=== PATIENT | male | born 1960 | race Two or more races ===

== ENCOUNTER 2016-06-26 06:05 | Inpatient (IN) | payer BC ==
[~2016-06-26] VITALS: Ht 175.3 cm; Wt 108.3 kg
[2016-06-26] MEDS ORDERED: SODIUM CHLORIDE 0.9% 1,000 ML IV ONE (06:34)
[2016-06-26] MEDS ORDERED: HYDROmorphone HCL 2 MG/ML VL IV ONE ×3 (06:45→11:45)
[2016-06-26] MEDS ORDERED: ONDANSETRON HCL 4 MG/2 ML VIAL IV ONE (06:45)
[2016-06-26 07:46] LABS: Albumin 3.5 g/dL (3.4-5.0); BUN/Creatinine Ratio 28.1; Basophils # (auto) 0 uL; Basophils % (auto) 0.2 % (0.0-2.0); Bilirubin, Total 0.4 mg/dL (0.2-1.0); Calcium 8.3 mg/dL (8.5-10.1); Eosinophils # (auto) 0.1 uL; Eosinophils % (auto) 1.2 % (0.0-7.0); Hematocrit 40.1 % (41.0-53.0); Hemoglobin 13.6 g/dL (13.5-17.5); Lymphocytes # (auto) 0.8 uL; Lymphocytes % (auto) 13.1 % (10.0-50.0); Magnesium 2.1 mg/dL (1.6-2.6); Mean Corpuscular Hemoglobin 29.2 pg (28.0-32.0); Mean Platelet Volume 7.4 fL (7.4-10.4); Monocytes # (auto) 0.4 uL; Monocytes % (auto) 5.9 % (0.0-12.0); Neutrophils # (auto) 5.1 uL; Neutrophils % (auto) 79.6 % (37.0-80.0); Platelet Count (auto) 296 10^3/uL (140-450); Potassium 3.6 mmol/L (3.5-5.1); Red Cell Distribution Width 12.8 % (11.6-16.0); Total Protein 6.9 g/dL (6.4-8.2); White Blood Cell 6.4 10^3/uL (4.4-10.8)
[2016-06-26] MEDS ORDERED: LIDOCAINE HCL 2% TOP JELLY 5ML TOP ONE ×3 (11:00→13:31)
[2016-06-26] MEDS ORDERED: LIDOCAINE 2% JELLY UROJET 10 ML TOP ONE ×2 (11:21→11:36)
[2016-06-26] MEDS ORDERED: LIDOCAINE 2% JELLY 11ml (GLYDO) UR ONE ×3 (12:30→13:15)
[2016-06-26 12:57] LABS: INR 0.97 (0.9-1.15); Partial Thromboplastin Time 26.7 sec (22.64-33.71); Prothrombin Time 10.5 sec (9.37-12.3)
[2016-06-26] MEDS ORDERED: LIDOCAINE W/ EPINEPHRINE 2% INJ 20ML VIAL IJ ONE (13:15)
[2016-06-26] MEDS ORDERED: LIDOCAINE HCL 2 %PF INJ 10ML AMP IJ ONE (13:15)
[2016-06-26] MEDS ORDERED: LIDOCAINE 2%HCL (LOCAL ANESTH.) INJ 20ML MDV IJ ONE (13:15)
[2016-06-26] MEDS ORDERED: ACETAMINOPHEN 325 MG TAB PO PRN (13:30)
[2016-06-26] MEDS ORDERED: MORPHINE SULF INJ 2 MG/ML SYRINGE 1ML IV PRN (13:30)
[2016-06-26] MEDS ORDERED: ONDANSETRON HCL 4 MG/2 ML VIAL IV PRN (13:30)
[2016-06-26] MEDS ORDERED: cefTRIAXone 1GM/50ML D5W 50 ML IV ONE (13:30)
[2016-06-26] MEDS ORDERED: NITROGLYCERIN 0.4 MG SL TAB SL PRN (13:30)
[2016-06-26] MEDS ORDERED: cloNIDine HCL 0.1 MG TAB PO PRN (13:30)
[2016-06-26] MEDS ORDERED: DEXTROSE (50%) 50ML SYRG IV PRN (13:30)
[2016-06-26] MEDS ORDERED: CHOLECALCIFEROL (VITD3) 1,000 UNIT TAB PO ONE (14:00)
[2016-06-26] MEDS ORDERED: MULTIPLE VITAMIN TAB PO ONE (14:00)
[2016-06-26] MEDS ORDERED: ATENOLOL 50 MG TAB PO ONE (14:00)
[2016-06-26] MEDS ORDERED: HCTZ 25 MG TAB PO ONE (14:00)
[2016-06-26] MEDS: SODIUM CHLOR 0.9% PF (SALINE LOCK) 10ML VIAL IV SCH ×2 (14:00→22:00)
[2016-06-26] MEDS ORDERED: LISINOPRIL 20 MG TAB PO ONE (14:00)
[2016-06-26] MEDS ORDERED: MORPHINE SULF INJ 2 MG/ML SYRINGE 1ML ONE (14:35)
[2016-06-26] MEDS ORDERED: MORPHINE SULF INJ 2 MG/ML SYRINGE 1ML IV ONE (14:45)
[2016-06-26] MEDS ORDERED: LISI-646 PO (16:07)
[2016-06-26] MEDS ORDERED: ATE50T PO (16:07)
[2016-06-26] MEDS: InsuLIN REG 1unit/0.01ml Soln (100units/ml) SC SCH ×2 (17:00→22:00)
[2016-06-26] MEDS: ACCU-CHEK COMFORT CURVE STRIP VI SCH ×2 (17:12→22:00)
[2016-06-26] MEDS: MORPHINE SULF INJ 2 MG/ML SYRINGE 1ML IV PRN ×2 (17:14→23:02)
[2016-06-26 17:31] VITALS: BP 155/99
[2016-06-26] MEDS: HYDROcodone-ACET 5/325MG TAB PO PRN (18:02)
[2016-06-26 22:00] VITALS: BP 126/74
[2016-06-26] MEDS: TEMAZEPAM 15 MG CAP PO PRN (23:54)
[2016-06-27] MEDS: MORPHINE SULF INJ 2 MG/ML SYRINGE 1ML IV PRN ×2 (03:44→07:43)
[2016-06-27] MEDS: HYDROcodone-ACET 5/325MG TAB PO PRN (04:57)
[2016-06-27 05:00] VITALS: BP 128/77
[2016-06-27 05:50] LABS: Basophils # (auto) 0 uL; Basophils % (auto) 0.2 % (0.0-2.0); Eosinophils # (auto) 0.2 uL; Eosinophils % (auto) 1.8 % (0.0-7.0); Hematocrit 38.1 % (41.0-53.0); Hemoglobin 12.5 g/dL (13.5-17.5); Lymphocytes # (auto) 1.3 uL; Lymphocytes % (auto) 15.5 % (10.0-50.0); Mean Corpuscular Hemoglobin 28.8 pg (28.0-32.0); Mean Corpuscular Hgb Conc. 32.9 g/dL (32.0-36.0); Mean Corpuscular Volume 87.5 fL (80.0-100.0); Mean Platelet Volume 7.4 fL (7.4-10.4); Monocytes # (auto) 0.7 uL; Monocytes % (auto) 7.9 % (0.0-12.0); Neutrophils # (auto) 6.5 uL; Neutrophils % (auto) 74.6 % (37.0-80.0); Platelet Count (auto) 310 10^3/uL (140-450); White Blood Cell 8.7 10^3/uL (4.4-10.8)
[2016-06-27] MEDS: SODIUM CHLOR 0.9% PF (SALINE LOCK) 10ML VIAL IV SCH ×3 (06:00→22:12)
[2016-06-27 06:21] LABS: Albumin 3.3 g/dL (3.4-5.0); BUN/Creatinine Ratio 15.7; Bilirubin, Total 0.8 mg/dL (0.2-1.0); Calcium 8.3 mg/dL (8.5-10.1); Potassium 3.6 mmol/L (3.5-5.1); Total Protein 6.4 g/dL (6.4-8.2)
[2016-06-27] MEDS: InsuLIN REG 1unit/0.01ml Soln (100units/ml) SC SCH (06:34)
[2016-06-27] MEDS: ACCU-CHEK COMFORT CURVE STRIP VI SCH (06:35)
[2016-06-27 09:00] VITALS: BP 128/90
[2016-06-27] MEDS: cefTRIAXone 1GM/50ML D5W 50 ML IV SCH (09:01)
[2016-06-27] MEDS: ATENOLOL 50 MG TAB PO SCH (09:04)
[2016-06-27] MEDS: MULTIPLE VITAMIN TAB PO SCH (09:04)
[2016-06-27] MEDS: ALPRAZolam 0.25 MG TAB PO PRN ×2 (09:33→22:12)
[2016-06-27] MEDS ORDERED: HCTZ 25 MG TAB PO SCH (10:00)
[2016-06-27] MEDS ORDERED: CHOLECALCIFEROL (VITD3) 1,000 UNIT TAB PO SCH (10:00)
[2016-06-27] MEDS ORDERED: LISINOPRIL 20 MG TAB PO SCH (10:00)
[2016-06-27] MEDS: HYDROmorphone HCL 2 MG/ML VL IV PRN ×3 (12:26→20:43)
[2016-06-27] MEDS: SODIUM CHLORIDE 0.9% 1,000 ML IV SCH (12:27)
[2016-06-27 13:00] VITALS: BP 120/80
[2016-06-27] MEDS: DOCUSATE SOD 100 MG CAP PO PRN (13:26)
[2016-06-27 17:45] VITALS: BP 130/69
[2016-06-27] MEDS: TEMAZEPAM 15 MG CAP PO PRN (23:12)
[2016-06-27 23:26] VITALS: BP 117/76
[2016-06-28] MEDS: SODIUM CHLORIDE 0.9% 1,000 ML IV SCH ×2 (00:58→14:02)
[2016-06-28] MEDS: HYDROmorphone HCL 2 MG/ML VL IV PRN ×2 (02:02→06:17)
[2016-06-28 05:30] VITALS: BP 111/69
[2016-06-28 06:14] LABS: Basophils # (auto) 0 uL; Basophils % (auto) 0.4 % (0.0-2.0); Eosinophils # (auto) 0.2 uL; Eosinophils % (auto) 2.2 % (0.0-7.0); Hematocrit 36.9 % (41.0-53.0); Hemoglobin 12.2 g/dL (13.5-17.5); Lymphocytes % (auto) 21.7 % (10.0-50.0); Mean Corpuscular Hgb Conc. 33.2 g/dL (32.0-36.0); Mean Corpuscular Volume 87.5 fL (80.0-100.0); Mean Platelet Volume 7.4 fL (7.4-10.4); Monocytes # (auto) 0.8 uL; Monocytes % (auto) 8.5 % (0.0-12.0); Neutrophils # (auto) 6.1 uL; Neutrophils % (auto) 67.2 % (37.0-80.0); Platelet Count (auto) 304 10^3/uL (140-450); Red Cell Distribution Width 12.6 % (11.6-16.0)
[2016-06-28] MEDS: SODIUM CHLOR 0.9% PF (SALINE LOCK) 10ML VIAL IV SCH ×3 (06:17→20:23)
[2016-06-28 07:00] VITALS: BP 119/70
[2016-06-28 07:40] VITALS: BP 119/70
[2016-06-28 08:57] VITALS: BP 119/70
[2016-06-28] MEDS: cefTRIAXone 1GM/50ML D5W 50 ML IV SCH (09:00)
[2016-06-28] MEDS ORDERED: ceFAZolin 1GM/50ML D5W 50 ML IV ONE (09:03)
[2016-06-28] MEDS ORDERED: PROPOFOL 10 MG/ML 20 ML IV ONE (09:46)
[2016-06-28] MEDS ORDERED: MIDAZOLAM HCL 1MG/1ML-2 ML VIAL ONE (09:46)
[2016-06-28] MEDS ORDERED: fentaNYL CITRATE 100 MCG/2 ML VL ONE (09:46)
[2016-06-28] MEDS ORDERED: ONDANSETRON HCL 4 MG/2 ML VIAL ONE (09:46)
[2016-06-28] MEDS: MULTIPLE VITAMIN TAB PO SCH (10:00)
[2016-06-28] MEDS: ATENOLOL 50 MG TAB PO SCH (10:00)
[2016-06-28] MEDS: LISINOPRIL 10 MG TAB PO SCH (10:00)
[2016-06-28] MEDS ORDERED: SUCCINYLCHOLINE CHLORIDE 20 MG/ML 10ML VIAL IV ONE (10:25)
[2016-06-28] MEDS ORDERED: ROCURONIUM 10MG/ML 10ML VIAL IV ONE (10:25)
[2016-06-28] MEDS ORDERED: HYDROmorphone HCL 2 MG/ML VL IV PRN (10:45)
[2016-06-28] MEDS ORDERED: METOCLOPRAMIDE HCL 5MG/ml INJ 2ml VIAL IV ONE (10:45)
[2016-06-28] MEDS ORDERED: LIDOCAINE 2% JELLY 11ml (GLYDO) ONE ×2 (11:16→13:19)
[2016-06-28] MEDS ORDERED: LIDOCAINE HCL 2% TOP JELLY 5ML TOP ONE (13:17)
[2016-06-28] MEDS: HYDROcodone-ACET 5/325MG TAB PO PRN ×2 (14:51→20:24)
[2016-06-28 16:00] VITALS: BP 129/78
[2016-06-28] MEDS: DOCUSATE SOD 100 MG CAP PO PRN ×2 (16:46→20:24)
[2016-06-28] MEDS: TEMAZEPAM 15 MG CAP PO PRN (20:24)
[2016-06-28 21:30] VITALS: BP 113/71
[2016-06-28] MEDS: ALPRAZolam 0.25 MG TAB PO PRN (21:49)
[2016-06-29] MEDS: SODIUM CHLORIDE 0.9% 1,000 ML IV SCH ×2 (03:33→21:24)
[2016-06-29 05:00] VITALS: BP 125/68
[2016-06-29] MEDS: SODIUM CHLOR 0.9% PF (SALINE LOCK) 10ML VIAL IV SCH ×3 (05:19→21:25)
[2016-06-29] MEDS: HYDROcodone-ACET 5/325MG TAB PO PRN ×4 (05:19→22:46)
[2016-06-29 06:42] LABS: Basophils # (auto) 0 uL; Eosinophils # (auto) 0 uL; Hematocrit 39.3 % (41.0-53.0); Hemoglobin 13.1 g/dL (13.5-17.5); Mean Corpuscular Hemoglobin 29.2 pg (28.0-32.0); Mean Corpuscular Hgb Conc. 33.4 g/dL (32.0-36.0); Mean Corpuscular Volume 87.5 fL (80.0-100.0); Mean Platelet Volume 7.6 fL (7.4-10.4); Monocytes # (auto) 0.9 uL; Monocytes % (auto) 6.3 % (0.0-12.0); Neutrophils # (auto) 12.2 uL; Neutrophils % (auto) 86.7 % (37.0-80.0); Platelet Count (auto) 383 10^3/uL (140-450); Red Cell Distribution Width 12.5 % (11.6-16.0)
[2016-06-29 07:04] LABS: Albumin 3.3 g/dL (3.4-5.0); BUN/Creatinine Ratio 15.1; Bilirubin, Total 0.4 mg/dL (0.2-1.0); Calcium 8.8 mg/dL (8.5-10.1); Total Protein 7.6 g/dL (6.4-8.2)
[2016-06-29 08:00] VITALS: BP 119/70
[2016-06-29] MEDS ORDERED: LIDOCAINE 2% JELLY 11ml (GLYDO) UR ONE (08:00)
[2016-06-29] MEDS: ALPRAZolam 0.25 MG TAB PO PRN ×2 (08:11→14:17)
[2016-06-29] MEDS: cefTRIAXone 1GM/50ML D5W 50 ML IV SCH (08:55)
[2016-06-29] MEDS: DOCUSATE SOD 100 MG CAP PO PRN (08:59)
[2016-06-29 09:00] VITALS: BP 128/84
[2016-06-29] MEDS: MULTIPLE VITAMIN TAB PO SCH (09:53)
[2016-06-29] MEDS: ATENOLOL 50 MG TAB PO SCH (09:53)
[2016-06-29] MEDS: LISINOPRIL 10 MG TAB PO SCH (09:54)
[2016-06-29] MEDS ORDERED: LACTULOSE 20Gm/30ML SOLN PO ONE ×2 (10:15→10:30)
[2016-06-29 13:00] VITALS: BP 116/75
[2016-06-29 17:00] VITALS: BP 129/72
[2016-06-29] MEDS: TEMAZEPAM 15 MG CAP PO PRN (21:21)
[2016-06-29 22:03] VITALS: BP 143/79
[2016-06-30] MEDS: HYDROcodone-ACET 5/325MG TAB PO PRN ×2 (03:00→09:08)
[2016-06-30] MEDS: ALPRAZolam 0.25 MG TAB PO PRN (04:08)
[2016-06-30 05:02] VITALS: BP 147/88
[2016-06-30] MEDS: SODIUM CHLORIDE 0.9% 1,000 ML IV SCH (05:55)
[2016-06-30] MEDS: SODIUM CHLOR 0.9% PF (SALINE LOCK) 10ML VIAL IV SCH (06:00)
[2016-06-30 07:06] LABS: Calcium 7.8 mg/dL (8.5-10.1); Potassium 3.8 mmol/L (3.5-5.1)
[2016-06-30 07:09] LABS: BUN/Creatinine Ratio 14.4
[2016-06-30 07:11] LABS: Bilirubin, Total 0.2 mg/dL (0.2-1.0); Total Protein 6.3 g/dL (6.4-8.2)
[2016-06-30 07:12] LABS: Basophils # (auto) 0 uL; Basophils % (auto) 0.5 % (0.0-2.0); Eosinophils # (auto) 0.1 uL; Eosinophils % (auto) 1.5 % (0.0-7.0); Hematocrit 35.9 % (41.0-53.0); Hemoglobin 11.8 g/dL (13.5-17.5); Lymphocytes # (auto) 2.3 uL; Mean Corpuscular Hemoglobin 28.7 pg (28.0-32.0); Mean Corpuscular Hgb Conc. 32.7 g/dL (32.0-36.0); Mean Corpuscular Volume 87.7 fL (80.0-100.0); Mean Platelet Volume 7.8 fL (7.4-10.4); Monocytes # (auto) 0.8 uL; Monocytes % (auto) 7.5 % (0.0-12.0); Neutrophils # (auto) 6.8 uL; Neutrophils % (auto) 67.5 % (37.0-80.0); Platelet Count (auto) 321 10^3/uL (140-450); Red Cell Distribution Width 13.1 % (11.6-16.0)
[2016-06-30 08:00] VITALS: BP 125/65
[2016-06-30 09:00] VITALS: BP 149/83
[2016-06-30] MEDS: MULTIPLE VITAMIN TAB PO SCH (09:08)
[2016-06-30] MEDS: ATENOLOL 50 MG TAB PO SCH (09:08)
[2016-06-30] MEDS: LISINOPRIL 10 MG TAB PO SCH (09:09)
[2016-06-30] MEDS: cefTRIAXone 1GM/50ML D5W 50 ML IV SCH (09:09)
== END 2016-06-30 13:32 | disposition home or self-care (01) | DRG 714 ==
LOC: ER 06:06 → TELE 06:07 → TELE-EAST 16:18
PROVIDERS: ADMIT Internal Medicine; ATTEND Internal Medicine
PROC: 0V508ZZ Destruction of Prostate, Via Natural or Artificial Opening Endoscopic (ICD-10-PCS; 2016-06-28)
PROC: 0VT08ZZ Resection of Prostate, Via Natural or Artificial Opening Endoscopic (ICD-10-PCS; principal; 2016-06-28 10:26)
DX: N40.1 Benign prostatic hyperplasia with lower urinary tract symptoms (principal); D63.8 Anemia in other chronic diseases classified elsewhere; E83.51 Hypocalcemia; I10 Essential (primary) hypertension; R31.0 Gross hematuria; Z90.79 Acquired absence of other genital organ(s); K59.00 Constipation, unspecified; E66.9 Obesity, unspecified; Z68.35 Body mass index [BMI] 35.0-35.9, adult; S37.8 Injury of other urinary and pelvic organs
CPT/HCPCS: 36415; 51702; 71010; 74176; 76856; 80053; 82962; 83036; 83735; 85025; 85610; 85730; 86850; 86900; 86901; 87081; 93005; 96365; 96375; 96376; J0330; J0690; J0696; J2250; J2405; J2704

== ENCOUNTER 2016-08-11 21:45 | Emergency (ER) | payer BC ==
[~2016-08-11] VITALS: Ht 177.8 cm; Wt 108.9 kg
[~2016-08-11 21:45] MED LIST: ATE50T PO; LISI-646 PO
[2016-08-11] MEDS ORDERED: MORPHINE SULFATE 4 MG/ML SYRG IV ONE (23:45)
[2016-08-11] MEDS ORDERED: ONDANSETRON HCL 4 MG/2 ML VIAL IV ONE (23:45)
[2016-08-11 23:52] LABS: Urine Bilirubin Negative (Negative); Urine Color Yellow (Yellow); Urine Glucose Normal (Normal); Urine Ketone Negative (Negative); Urine Mucus FEW (None Seen); Urine Nitrite Negative (Negative); Urine RBC 17 /hpf (0 - 3); Urine Squamous Epithelial Cell FEW /hpf (<5); Urine Urobilinogen Normal (Negative); Urine pH 5.5 (5.0-8.0)
[2016-08-11 23:55] LABS: Basophils # (auto) 0.1 uL; Basophils % (auto) 1.6 % (0.0-2.0); Eosinophils # (auto) 0.1 uL; Eosinophils % (auto) 1.1 % (0.0-7.0); Hematocrit 46.2 % (41.0-53.0); Hemoglobin 15.4 g/dL (13.5-17.5); Lymphocytes # (auto) 2.2 uL; Lymphocytes % (auto) 30.8 % (10.0-50.0); Mean Corpuscular Hemoglobin 28.5 pg (28.0-32.0); Mean Corpuscular Hgb Conc. 33.4 g/dL (32.0-36.0); Mean Corpuscular Volume 85.3 fL (80.0-100.0); Mean Platelet Volume 7.5 fL (7.4-10.4); Monocytes # (auto) 0.7 uL; Monocytes % (auto) 10.3 % (0.0-12.0); Neutrophils # (auto) 3.9 uL; Neutrophils % (auto) 56.2 % (37.0-80.0); Platelet Count (auto) 287 10^3/uL (140-450); Red Cell Distribution Width 11.8 % (11.6-16.0)
[2016-08-11 23:56] LABS: Urine Blood 1+ /uL (Negative)
[2016-08-12 00:03] LABS: Albumin 3.7 g/dL (3.4-5.0); Calcium 8.8 mg/dL (8.5-10.1); Potassium 3.9 mmol/L (3.5-5.1)
[2016-08-12 00:06] LABS: BUN/Creatinine Ratio 16.7
[2016-08-12 00:14] LABS: Bilirubin, Total 0.5 mg/dL (0.2-1.0); Total Protein 7.9 g/dL (6.4-8.2)
[2016-08-12] MEDS ORDERED: cefTRIAXone 1GM/50ML D5W 50 ML IV ONE ×2 (03:56→04:00)
[2016-08-12] MEDS ORDERED: HYDROmorphone HCL 2 MG/ML VL IV ONE ×2 (04:00)
[2016-08-12] MEDS ORDERED: SODIUM CHLORIDE 0.9% 1,000 ML IV ONE (04:15)
[2016-08-12 05:00] VITALS: BP 147/72
[2016-08-13 11:07] LABS: PSA Free 0.43 ng/mL; Prostate Specific Antigen 2.6 ng/mL (0.0-4.0)
== END 2016-08-12 05:24 | disposition home or self-care (01) ==
LOC: ER 21:55
DX: N39.0 Urinary tract infection, site not specified (principal); R33.9 Retention of urine, unspecified; I10 Essential (primary) hypertension
CPT/HCPCS: 36415; 51702; 74176; 80053; 81001; 84154; 85025; 96365; 96375; 99285; J0696; J1170; J2270; J2405; J7030

== ENCOUNTER 2016-08-12 11:00 | Inpatient (IN) | payer BC ==
[~2016-08-12] VITALS: Ht 177.8 cm; Wt 107.6 kg
[2016-08-12] MEDS: SODIUM CHLORIDE 0.9% 1,000 ML IV SCH ×2 (12:00→22:19)
[2016-08-12] MEDS ORDERED: ACETAMINOPHEN 325 MG TAB PO PRN (12:00)
[2016-08-12 12:11] VITALS: BP 155/96
[2016-08-12] MEDS: ONDANSETRON HCL 4 MG/2 ML VIAL IV PRN ×2 (12:32→16:18)
[2016-08-12] MEDS: HYDROmorphone HCL 2 MG/ML VL IV PRN ×3 (12:32→21:20)
[2016-08-12 12:35] VITALS: BP 155/96
[2016-08-12 12:52] VITALS: BP 135/76
[2016-08-12 12:52] LABS: Basophils # (auto) 0 uL; Basophils % (auto) 0.3 % (0.0-2.0); Eosinophils # (auto) 0.1 uL; Eosinophils % (auto) 0.7 % (0.0-7.0); Hematocrit 42.8 % (41.0-53.0); Hemoglobin 14.6 g/dL (13.5-17.5); Lymphocytes % (auto) 25.6 % (10.0-50.0); Mean Corpuscular Hemoglobin 29.4 pg (28.0-32.0); Mean Corpuscular Hgb Conc. 34.2 g/dL (32.0-36.0); Mean Corpuscular Volume 86.1 fL (80.0-100.0); Mean Platelet Volume 7.7 fL (7.4-10.4); Monocytes # (auto) 0.7 uL; Neutrophils % (auto) 64.4 % (37.0-80.0); Platelet Count (auto) 293 10^3/uL (140-450); Red Cell Distribution Width 13.4 % (11.6-16.0); White Blood Cell 7.7 10^3/uL (4.4-10.8)
[2016-08-12 13:20] LABS: Albumin 3.5 g/dL (3.4-5.0); BUN/Creatinine Ratio 17.2; Bilirubin, Total 0.6 mg/dL (0.2-1.0); Calcium 8.3 mg/dL (8.5-10.1); Total Protein 6.9 g/dL (6.4-8.2)
[2016-08-12 17:00] VITALS: BP 129/79
[2016-08-12 20:15] VITALS: BP 140/58
[2016-08-12 21:39] VITALS: BP 140/58
[2016-08-13 05:00] VITALS: BP 139/79
[2016-08-13 08:50] VITALS: BP 155/87
[2016-08-13] MEDS: cefTRIAXone 1GM/50ML D5W 50 ML IV SCH (08:54)
[2016-08-13] MEDS: SODIUM CHLORIDE 0.9% 1,000 ML IV SCH (08:54)
[2016-08-13] MEDS ORDERED: TEMAZEPAM 15 MG CAP PO PRN (09:30)
[2016-08-13] MEDS: PHENAZOPYRIDINE HCL 100 MG TAB PO SCH ×2 (12:09→17:44)
[2016-08-13 13:00] VITALS: BP 150/91
[2016-08-13 17:02] VITALS: BP 146/95
[2016-08-13] MEDS ORDERED: TAMSULOSIN HYDROCHLORIDE 0.4 MG CAP PO SCH (18:00)
[2016-08-13 20:05] VITALS: BP 156/88
[2016-08-13 20:35] VITALS: BP 156/88
[2016-08-13] MEDS: HYDROmorphone HCL 2 MG/ML VL IV PRN (23:46)
[2016-08-13] MEDS: ONDANSETRON HCL 4 MG/2 ML VIAL IV PRN (23:46)
[2016-08-14] MEDS: SODIUM CHLORIDE 0.9% 1,000 ML IV SCH (00:18)
[2016-08-14 04:40] VITALS: BP 132/76
[2016-08-14 06:28] LABS: Basophils # (auto) 0 uL; Basophils % (auto) 0.4 % (0.0-2.0); Eosinophils # (auto) 0.1 uL; Eosinophils % (auto) 2.4 % (0.0-7.0); Hematocrit 42.8 % (41.0-53.0); Hemoglobin 14.4 g/dL (13.5-17.5); Lymphocytes # (auto) 2.2 uL; Mean Corpuscular Hemoglobin 29.3 pg (28.0-32.0); Mean Corpuscular Hgb Conc. 33.6 g/dL (32.0-36.0); Mean Corpuscular Volume 87.2 fL (80.0-100.0); Mean Platelet Volume 8.4 fL (7.4-10.4); Monocytes # (auto) 0.6 uL; Monocytes % (auto) 10.6 % (0.0-12.0); Neutrophils % (auto) 49.6 % (37.0-80.0); Platelet Count (auto) 265 10^3/uL (140-450); Red Cell Distribution Width 12.6 % (11.6-16.0)
[2016-08-14 06:55] LABS: Albumin 3.3 g/dL (3.4-5.0); BUN/Creatinine Ratio 16.3; Bilirubin, Total 0.4 mg/dL (0.2-1.0); Potassium 3.6 mmol/L (3.5-5.1); Total Protein 6.5 g/dL (6.4-8.2)
[2016-08-14] MEDS: PHENAZOPYRIDINE HCL 100 MG TAB PO SCH ×2 (07:50→11:37)
[2016-08-14] MEDS: cefTRIAXone 1GM/50ML D5W 50 ML IV SCH (08:31)
[2016-08-14 09:02] VITALS: BP 139/98
[2016-08-14 11:55] VITALS: BP 139/98
== END 2016-08-14 12:17 | disposition home or self-care (01) | DRG 690 ==
LOC: EAST 11:00 → WEST WING 12:53
PROVIDERS: ADMIT Internal Medicine; ATTEND Internal Medicine
DX: N39.0 Urinary tract infection, site not specified (principal); N40.1 Benign prostatic hyperplasia with lower urinary tract symptoms; R31.9 Hematuria, unspecified; I10 Essential (primary) hypertension; Z90.79 Acquired absence of other genital organ(s); Z71.89 Other specified counseling
CPT/HCPCS: 36415; 80053; 85025; 87086; J0696; J2405